=== PATIENT | female | born 1955 | race Caucasian/White ===

== ENCOUNTER 2021-02-04 08:40 | Outpatient (CLI) | payer BC, SELFPAY ==
[2021-02-04 09:43] LABS: Basophils Absolute Auto 0.1 K/mm3 (0.0-0.1); Eosinophils Absolute Auto 0.2 K/mm3 (0-0.3); Eosinophils Percent Auto 3.5 % (0-4.4); Hematocrit 41.6 % (37.0-47.0); Hemoglobin 13.3 g/dL (12.0-15.0); Immature Granulocyte Absolute 0.01 K/mm3 (0.00-0.031); Immature Granulocyte Percent A 0.2 % (0-0.5); Lymphocytes Absolute Auto 2.07 K/mm3 (0.9-3.2); Lymphocytes Percent Auto 42.3 % (18.3-44.2); Mean Corpuscular Hemoglobin 29.4 pg (26-34); Mean Corpuscular Volume 91.8 fl (80-100); Mean Platelet Volume 10.8 fl (7.4-10.4); Monocytes Absolute Auto 0.5 K/mm3 (0.1-0.6); Neutrophils Absolute Auto 2.1 K/mm3 (1.3-6.7); Platelet Count Result 288 k/mm3 (150-375); Red Blood Count 4.53 M/mm3 (4.2-5.4); White Blood Count 4.9 K/mm3 (4.5-10.0)
[2021-02-04 09:56] LABS: Alanine Aminotransferase 17 U/L (4-35); Albumin Level 4.1 g/dL (3.5-5.1); Alkaline Phosphatase 54 U/L (38-126); Anion Gap 5 mmol/L (8-16); Aspartate Amino Transferase 27 U/L (14-36); Bilirubin,Total 0.5 mg/dL (0.2-1.3); Blood Urea Nitrogen 14 mg/dL (7-17); Calcium 9.2 mg/dL (8.4-10.2); Carbon Dioxide 29 mmol/L (22-30); Chloride 102 mmol/L (98-107); Cholesterol 138 mg/dL (0-200); Estimated Glomerular Filt Rate > 60; Glucose 101 mg/dL (65-110); HDL Direct 61 mg/dL; Potassium 4.2 mmol/L (3.4-5.0); Sodium 136 mmol/L (137-145); Triglycerides 86 mg/dL (<150)
[2021-02-04 10:07] LABS: LDL Cholesterol Direct 51 mg/dL
[2021-02-04 10:40] LABS: Vitamin D 25 Hydroxy 79.6 ng/mL
[2021-02-04 10:42] LABS: Creatinine Urine 83.3 mg/dL
[2021-02-04 11:25] LABS: MALB Creatinine Ratio < 7.2 mg/g (0-30); Microalbumin Urine Random < 6.0 mg/L (0-16.7)
== END 2021-02-04 08:41 | disposition home or self-care (01) ==
PROVIDERS: PCP Internal Medicine; Visit Provider Internal Medicine
DX: E55.9 Vitamin D deficiency, unspecified (principal); H34.9 Unspecified retinal vascular occlusion; E78.2 Mixed hyperlipidemia; I10 Essential (primary) hypertension
CPT/HCPCS: 36415; 80053; 80061; 82043; 82306; 84443; 85025

== ENCOUNTER 2022-02-11 07:29 | Outpatient (CLI) | payer MEDICARE, OTHER, SELFPAY ==
[2022-02-11 09:36] LABS: Alanine Aminotransferase 17 U/L (6-35); Albumin Level 4.4 g/dL (3.5-5.1); Alkaline Phosphatase 57 U/L (38-126); Anion Gap 9 mmol/L (8-16); Aspartate Amino Transferase 33 U/L (14-36); Bilirubin,Total 0.5 mg/dL (0.2-1.3); Blood Urea Nitrogen 15 mg/dL (7-17); Calcium 8.9 mg/dL (8.4-10.2); Carbon Dioxide 31 mmol/L (22-30); Chloride 101 mmol/L (98-107); Cholesterol 134 mg/dL (0-200); Estimated Glomerular Filt Rate > 60; Glucose 104 mg/dL (65-110); HDL Direct 61 mg/dL; Potassium 4.4 mmol/L (3.4-5.0); Sodium 141 mmol/L (137-145); Triglycerides 59 mg/dL (<150)
[2022-02-11 09:47] LABS: LDL Cholesterol Direct 43 mg/dL
== END 2022-02-11 07:30 | disposition home or self-care (01) ==
LOC: ANHLAB 07:33
PROVIDERS: PCP Internal Medicine; Visit Provider Nurse Practitioner
DX: E78.5 Hyperlipidemia, unspecified (principal)
CPT/HCPCS: 36415; 80053; 80061

== ENCOUNTER 2023-03-02 08:23 | Outpatient (CLI) | payer MEDICARE, OTHER, SELFPAY ==
[2023-03-02 10:19] LABS: Alanine Aminotransferase 20 U/L (6-35); Albumin Level 4.2 g/dL (3.5-5.1); Alkaline Phosphatase 55 U/L (38-126); Anion Gap 6 mmol/L (8-16); Aspartate Amino Transferase 27 U/L (14-36); Bilirubin,Total 0.7 mg/dL (0.2-1.3); Blood Urea Nitrogen 15 mg/dL (7-17); Calcium 9.1 mg/dL (8.4-10.2); Carbon Dioxide 26 mmol/L (22-30); Chloride 104 mmol/L (98-107); Cholesterol 135 mg/dL (0-200); Estimated Glomerular Filt Rate > 60; Glucose 94 mg/dL (65-110); HDL Direct 54 mg/dL; Potassium 3.9 mmol/L (3.4-5.0); Sodium 136 mmol/L (137-145); Triglycerides 80 mg/dL (<150)
[2023-03-02 10:31] LABS: LDL Cholesterol Direct 58 mg/dL
[2023-03-02 10:50] LABS: Vitamin D 25 Hydroxy 81.2 ng/mL
== END 2023-03-02 08:24 | disposition home or self-care (01) ==
LOC: ANHLAB 08:25
PROVIDERS: PCP Nurse Practitioner; Visit Provider Nurse Practitioner
DX: E78.5 Hyperlipidemia, unspecified (principal); E55.9 Vitamin D deficiency, unspecified
CPT/HCPCS: 36415; 80053; 80061; 82306

== ENCOUNTER 2023-06-29 08:51 | Emergency (ER) | payer MEDICARE, OTHER, SELFPAY ==
--- NOTE | 2023-06-29 09:13 | ED.URI ---
HPI - URI/Sore Throat General Chief Complaint: Upper Respiratory Infection Stated Complaint: cough,nasal congestion Time Seen by Provider: 06/29/23 09:13 Source: patient Mode of arrival: ambulatory Limitations: no limitations History of Present Illness HPI Narrative: Sharmin is a 67-year-old female patient presenting to the clinic today with complaints of cough and nasal congestion x1 day. She reports symptoms started yesterday morning. Has cough that is occasionally productive and stuffy nose. No fever or chills. Denies any shortness of breath or chest pain. MD elicited complaint: cough and nasal congestion Related Data Home Medications Medication Instructions Recorded Confirmed aspirin 81 mg tablet,delayed 81 mg PO DAILY 05/23/19 06/29/23 release (Adult Low Dose Aspirin) multivitamin (Daily Multi-Vitamin 1 tablet PO DAILY 05/23/19 06/29/23 tablet) calcium carbonate 600 mg-vitamin 1 tablet PO DAILY 02/09/21 06/29/23 D3 5 mcg (200 unit) tablet (Calcium 600 + D(3)) lutein 40 mg capsule 40 mg PO DAILY 02/09/21 06/29/23 omega 4-wug-jle-fish oil 1,200 mg 1 cap PO DAILY 02/09/21 06/29/23 (144 mg-216 mg) capsule (Fish Oil) glucosamine-chondroitin 250 mg-200 2 tablet PO TID 02/22/23 06/29/23 mg tablet (Osteo Bi-Flex) Allergies Allergy/AdvReac Type Severity Reaction Status Date / Time No Known Allergies Allergy Unknown Verified 06/29/23 08:56 Review of Systems Review of Systems: Pertinent positives per HPI. Patient denies any fever, chills, rash, headache, visual changes, dizziness, shortness of breath, chest pain, palpitations, nausea, vomiting, diarrhea, constipation, abdominal pain, or any urinary issues. [facility] Past Medical History Medical History (Updated 06/29/23 @ 09:27 by Parish Harmon APRN) H/O vaginal delivery Hypertension Stroke Surgical History Surgical History H/O breast biopsy H/O tubal ligation Hx of cholecystectomy Family History Family History Mother Hypertension Cerebrovascular accident Family history of osteoarthritis Family history of coronary artery disease, Onset Age: 78 Father Family history of lung cancer Patient's father is Social History Social History Smoking status: Never smoker Second hand tobacco smoke exposure: No Alcohol intake: never Substance use: never Substance use type: does not use Lack of Transportation: No Lack of Food: Never True Current Housing: I Have Housing Concerned About Future Housing: No Difficulty Paying Gas/Electric Bills: No Difficulty Paying for Meds: No Currently Unemployed: No Education: High School Diploma/GED Difficulty w/ Childcare or Family Care: No Comments At the time of my signature, I reviewed and agree with the nursing past medical, surgical, social, and family history. There is no relevant family history pertinent to the patient complaint. Exam Narrative: General: Well-developed, well nourished, in no apparent distress Head: Normocephalic, atraumatic Eyes: Pupils equally round and reactive to light bilaterally, EOM intact, sclera and conjunctive clear, no discharge, lids normal Ears: TMs intact and clear, ear canals clear, no drainage, grossly hearing normal. Nose: Nares patent, clear nasal discharge, no inflammation, no sinus tenderness. Mouth: Oral pharynx without lesions or masses, good dentition, MMM. Neck: Supple, trachea midline, no enlargement of anterior or posterior cervical nodes, no thyroid masses or goiter palpable. Cardio: Regular rate and rhythm, s1 and s2 normal, no murmur appreciated. Resp: Clear to auscultation bilaterally, no rhonchi, rales, wheezing or rubs Course Course Emergency Course: Portions of this record may have been created with voice re
[2023-06-29 09:15] VITALS: BP 139/77; PULSE 84; RESP 14; TEMP 37.4; O2SAT 98
== END 2023-06-29 09:32 | disposition home or self-care (01) ==
PROVIDERS: Emergency Provider Nurse Practitioner Family; PCP Nurse Practitioner
DX: U07.1 COVID-19 (principal); I10 Essential (primary) hypertension; Z86.73 Personal history of transient ischemic attack (TIA), and cerebral infarction without residual deficits; Z79.82 Long term (current) use of aspirin
CPT/HCPCS: 87426; 99213; G0463

== ENCOUNTER 2024-03-01 09:40 | Outpatient (CLI) | payer MEDICARE, OTHER, SELFPAY ==
[2024-03-01 10:37] LABS: Alanine Aminotransferase 16 U/L (6-35); Albumin Level 4.1 g/dL (3.5-5.1); Alkaline Phosphatase 58 U/L (38-126); Anion Gap 7 mmol/L (4-12); Aspartate Amino Transferase 28 U/L (14-36); Bilirubin,Total 0.5 mg/dL (0.2-1.3); Blood Urea Nitrogen 18 mg/dL (7-17); Carbon Dioxide 29 mmol/L (22-30); Chloride 103 mmol/L (98-107); Cholesterol 126 mg/dL (0-200); Estimated Glomerular Filt Rate > 60; Glucose 93 mg/dL (65-110); HDL Direct 54 mg/dL; Potassium 3.9 mmol/L (3.4-5.0); Sodium 139 mmol/L (137-145); Triglycerides 103 mg/dL (<150)
[2024-03-01 10:48] LABS: LDL Cholesterol Direct 50 mg/dL
== END 2024-03-01 09:41 | disposition home or self-care (01) ==
LOC: ANHLAB 09:45
PROVIDERS: PCP Nurse Practitioner; Visit Provider Nurse Practitioner
DX: E78.5 Hyperlipidemia, unspecified (principal)
CPT/HCPCS: 36415; 80053; 80061

== ENCOUNTER 2024-10-09 09:22 | Outpatient (CLI) | payer MEDICARE, OTHER, SELFPAY ==
--- OUTSIDE RECORDS SUMMARY | 2024-10-09 10:01 | XMS_ITS | Clinical Summary ---
Author Organization [facility] Address [address] [place] [id number] Care Team Providers Care Oceanologist Name Role Phone Jeffrey Durand NP Primary Care Provider [phone] Family History Medical History Relation Comments Breast Cancer Neg Hx Social History Tobacco Use Types Packs/Day Years Used Date Smoking Tobacco: Never Assessed Comments Unknown Sex and Gender Information Value Date Recorded Sex Assigned at Not on file Legal Sex Female 7:35 PM CDT Gender Identity Not on file Sexual Orientation Not on file Plan of Treatment Health Maintenance Due Date Last Done Comments Colorectal Cancer Screening Colonoscopy (10 Years) 1955 Hepatitis C 1974 DTaP, Tdap and Td Vaccines (1 - Tdap) 1975 Pneumococcal Vaccine: 50+ Years (1 of 1 - PCV) 2006 Annual Medicare Wellness Visit 2021 COVID-19 Vaccine ( season) 2024 08/25/2020, 08/04/2020 Mammogram Screening 06/24/2026 06/24/2024, 06/20/2023, 11/11/2021, Additional history exists RSV Immunization or 60+ Years (1 - 1-dose 75+ series) 2031 Zoster Vaccines Completed 10/25/2018, 08/22/2018 Dexa Scan (General) Completed 06/24/2024, 11/11/2021, 07/17/2019 Meningococcal B Vaccine Aged Out No l onger eligible based on patient's age to complete this topic Meningococcal Vaccine Aged Out No edi parisa eligible based on patient's age to complete this topic RSV Immunizations Under 20 Months Aged Out No longer eligible based on patient's age to complete this topic Procedures Procedure Name Priority Date/Time Associated Diagnosis Comments MG SCREENING W MEGAN FAUZIA DIGI Routine 06/24/2024 12:54 PM OSCILLOGRAPH TECHNICIAN Visit for screening mammogram BONE DENSITY/DEXA Routine 06/24/2024 12: 44 PM OSCILLOGRAPH TECHNICIAN Asymptomatic menopausal state from Last 3 Months or Most Recently Relevant to Health Maintenance Results * MG SCREENING W MEGAN FAUZIA DIGI (06/24/2024 12:54 PM OSCILLOGRAPH TECHNICIAN) Anatomical Region Laterality Modality Breast Bilateral Mammography 06/24/2024 1:22 PM OSCILLOGRAPH TECHNICIAN Impressions 06/24/2024 1:23 PM OSCILLOGRAPH TECHNICIAN =====IMPRESSION:===== No mammographic findings suggestive of malignancy ASSESSMENT: ACR BI-RADS 2 - BENIGN FINDING(S) Recommendation: 1: Routine Screening Bilateral COMMENTS: Ordered By: MARV JO Interpreted By: Gary Herrera MD, 06/24/2024 1:22 PM Narrative 06/24/2024 1:23 PM OSCILLOGRAPH TECHNICIAN [facility] [address] [place] [address] EXAMINATION: Digital bilateral screening mammogram with 3-D tomosynthesis EXAM DATE/TIME: 06/24/2024 12:15 PM REASON FOR EXAM: Screening COMPARISON: Priors including June 2023, November 2021, October 2020. TECHNIQUE: Digital screening mammography of both breasts was performed in addition to 3-D Tomosynthesis technique. This study was read with the assistance of a computer-aided detection system. TISSUE DENSITY: There are scattered areas of fibroglandular density. FINDINGS: No suspicious masses, malignant appearing calcifications, skin thickening or other abnormalities are present. No significant change from the prior exam. us Marv Jo MD MAMMO Final Result * BONE DENSITY/DEXA (06/24/2024 12:44 PM OSCILLOGRAPH TECHNICIAN) Anatomical Region Laterality Modality Bone Bone Density 06/24/2024 12:5 7 PM OSCILLOGRAPH TECHNICIAN Impressions 06/24/2024 12:59 PM OSCILLOGRAPH TECHNICIAN IMPRESSION: WHO Classification: Osteopenic. Follow-up June 2026. FRAX Score: 10 year probability major osteoporotic fracture 10%. Hip fracture 1.6%. Ordered By: MARV JO Interpreted By: Gary Hrerera MD, 06/24/2024 12:57 PM Narrative 06/24/2024 12:59 PM OSCILLOGRAPH TECHNICIAN [facility] [address] [place] [address] Examination: Bone Density Axial Exam Date/Time: 06/24/2024 12:30 PM Reason For Exam: asymptomatic menopausal state Comparison: None Findings: DEXA bone densitometry The bone mineral density (BMD) was determined by dual-energy x-ray absorptiometry, the results are as follows: AP Lumbar Spine L1 through L4 BMD Patient (GM/SQCM): 0.961 T-Score (Standard deviations from young adult peak bone density): -0.8 Right femoral neck: BMD Patient (GM/SQCM): 0.640 T-Score (Standard deviations from young adult peak bone density): -1.9 Total right femur: BMD Patient (GM/SQCM): 0.936 T-Score (Standard deviations from young adult peak bone density): 0 Procedure Note Gary Herrera MD - 06/24/2024 [facility] [address] [place] [address] Examination: Bone Density Axial Exam Date/Time: 06/24/2024 12:30 PM Reason For Exam: asymptomatic menopausal state Comparison: None Findings: DEXA bone densitometry The bone mineral density (BMD) was determined bydual-energy x-ray absorptiometry, the results are as follows: AP Lumbar Spine L1 through L4 BMD Patient (GM/SQCM): 0.961 T-Score (Standard deviations from young adult peak bonedensity): -0.8 Right femoral neck: BMD Patient (GM/SQCM): 0.640 T-Score (Standard deviations from young adult peak bonedensity): -1.9 Total right femur: BMD Patient (GM/SQCM): 0.936 T-Score (Standard deviations from young adult peak bonedensity): 0 IMPRESSION: WHO Classification: Osteopenic. Follow-up June 2026. FRAX Score: 10 year probability major osteoporotic fracture 10%. Hipfracture 1.6%. Ordered By: MARV JO Interpreted By: Gary Herrera MD, 06/24/2024 12:57 PM Marv Jo MD DEXA Final Result from Last 3 Months or Most Recently Relevant to Health Maintenance [place] [address] [facility] [place] [address] [place] [phone] Care Teams Oceanologist Relationship Specialty Start Date End Date Jeffrey Durand NP [address] [facility] [address] [place] [address] PCP - General NURSE PRACTITIONER 06/24/24
[2024-10-09 10:22] LABS: Alanine Aminotransferase 20 U/L (6-35); Alkaline Phosphatase 53 U/L (38-126); Anion Gap 6 mmol/L (4-12); Aspartate Amino Transferase 28 U/L (14-36); Bilirubin,Total 0.7 mg/dL (0.2-1.3); Blood Urea Nitrogen 15 mg/dL (7-17); Carbon Dioxide 30 mmol/L (22-30); Chloride 103 mmol/L (98-107); Cholesterol 140 mg/dL (0-200); Estimated Glomerular Filt Rate > 60; Glucose 100 mg/dL (65-110); HDL Direct 48 mg/dL; Potassium 4.1 mmol/L (3.4-5.0); Sodium 139 mmol/L (137-145); Triglycerides 91 mg/dL (<150)
[2024-10-09 10:33] LABS: LDL Cholesterol Direct 56 mg/dL
[2024-10-09 10:42] LABS: Vitamin D 25 Hydroxy 90.9 ng/mL
== END 2024-10-09 09:23 | disposition home or self-care (01) ==
PROVIDERS: PCP Nurse Practitioner; Visit Provider Nurse Practitioner
DX: E78.5 Hyperlipidemia, unspecified (principal); E55.9 Vitamin D deficiency, unspecified
CPT/HCPCS: 36415; 80053; 80061; 82306

== ENCOUNTER 2025-04-17 08:12 | Outpatient (CLI) | payer MEDICARE, SELFPAY ==
[2025-04-17 10:50] LABS: Alanine Aminotransferase 16 U/L (6-35); Albumin Level 4.1 g/dL (3.5-5.1); Alkaline Phosphatase 49 U/L (38-126); Anion Gap 6 mmol/L (4-12); Aspartate Amino Transferase 39 U/L (14-36); Bilirubin,Total 0.6 mg/dL (0.2-1.3); Blood Urea Nitrogen 9 mg/dL (7-17); Calcium 9.1 mg/dL (8.4-10.2); Carbon Dioxide 29 mmol/L (22-30); Chloride 102 mmol/L (98-107); Cholesterol 127 mg/dL (0-200); Estimated Glomerular Filt Rate > 60; Glucose 86 mg/dL (65-110); HDL Direct 54 mg/dL; Potassium 4.0 mmol/L (3.4-5.0); Sodium 137 mmol/L (137-145); Total Protein 7.1 g/dL (6.3-8.2); Triglycerides 84 mg/dL (<150)
--- OUTSIDE RECORDS SUMMARY | 2025-04-17 17:05 | XMS_ITS | Clinical Summary ---
Author Organization [facility] Address [address] [place] [id number] Care Team Providers Care Yield Analyst Name Role Phone Jeffrey Durand NP Primary Care Provider [phone] Family History Medical History Relation Comments Breast [...] Medicare Wellness Visit 2021 COVID-19 Vaccine ( - season) 2025 08/25/2020, 08/04/2020 Influenza Adult (#1) 2025 03/20/2017 Mammogram Screening 06/24/2026 06/24/2024, 06/20/2023, 11/11/2021, Additional history exists RSV Immunization or 60+ Years (1 - 1-dose 75+ series) 2031 Zoster Vaccines Completed 10/25/2018, 08/22/2018 Dexa Scan (General) Completed 06/24/2024, 11/11/2021, 07/17/2019 Hepatitis A Vaccines Aged Out No long er eligible based on patient's age to complete this topic Meningococcal B Vaccine Aged Out No l [...] MEGAN FAUZIA DIGI Routine 06/24/2024 12:54 PM DRAWER IN STITCH BONDING MACHINE Visit for screening mammogram BONE DENSITY/DEXA Routine 06/24/2024 12: 44 PM DRAWER IN STITCH BONDING MACHINE Asymptomatic menopausal state from Last 3 Months or Most Recently Relevant to Health Maintenance Results * MG SCREENING W MEGAN FAUZIA DIGI (06/24/2024 12:54 PM DRAWER IN STITCH BONDING MACHINE) Anatomical Region Laterality Modality Breast Bilateral Mammography 06/24/2024 1:22 PM DRAWER IN STITCH BONDING MACHINE Impressions 06/24/2024 1:23 PM DRAWER IN STITCH BONDING MACHINE =====IMPRESSION:===== No mammographic findings suggestive of malignancy ASSESSMENT: ACR BI-RADS 2 - BENIGN FINDING(S) Recommendation: 1: Routine Screening Bilateral COMMENTS: Ordered By: MARV JO Interpreted By: Gary Herrera MD, 06/24/2024 1:22 PM Narrative 06/24/2024 1:23 PM DRAWER IN STITCH BONDING MACHINE [facility] [address] [place] [address] EXAMINATION: Digital bilateral screening mammogram with 3-D [...] Result * BONE DENSITY/DEXA (06/24/2024 12:44 PM DRAWER IN STITCH BONDING MACHINE) Anatomical Region Laterality Modality Bone Bone Density 06/24/2024 12:5 7 PM DRAWER IN STITCH BONDING MACHINE Impressions 06/24/2024 12:59 PM DRAWER IN STITCH BONDING MACHINE IMPRESSION: WHO Classification: Osteopenic. Follow-up June 2026. FRAX Score: 10 year probability major osteoporotic fracture 10%. Hip fracture 1.6%. Ordered By: MARV JO Interpreted By: Gary Herrera MD, 06/24/2024 12:57 PM Narrative 06/24/2024 12:59 PM DRAWER IN STITCH BONDING MACHINE [facility] [address] [place] [address] Examination: Bone Density Axial Exam Date/Time: 06/24/2024 [...] Procedure Note Gary Herrera MD - 06/24/2024 [facility] [address] [place] [address] Examination: Bone Density Axial Exam Date/Time: 06/24/2024 [...] By: Gary Herrera MD, 06/24/2024 12:57 PM us Marv Jo MD DEXA Final Result from Last 3 Months or Most Recently Relevant to Health [place] [address] [facility] MEDICARE Care Teams Yield Analyst Relationship Specialty Start Date End Date Jeffrey Durand NP [address] [facility] [address] [place] [address] PCP - General NURSE PRACTITIONER 06/24/24
== END 2025-04-17 08:13 | disposition home or self-care (01) ==
PROVIDERS: PCP Nurse Practitioner; Visit Provider Nurse Practitioner
DX: E78.5 Hyperlipidemia, unspecified (principal)
CPT/HCPCS: 36415; 80053; 80061